=== PATIENT | male | born 2000 | race Hispanic/Latino ===

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

== ENCOUNTER 2019-10-23 00:43 | Emergency (ER) | payer OTHER, SELFPAY | END 2019-10-23 02:29 | disposition home or self-care (01) | LOC: ERS 00:43 | DX: S81.812A Laceration without foreign body, left lower leg, initial encounter (principal); W26.0XXA Contact with knife, initial encounter; Y92.009 Unspecified place in unspecified non-institutional (private) residence as the place of occurrence of the external cause | CPT/HCPCS: 12034 ==